=== PATIENT | male | born 1955 | race Caucasian/White ===

== ENCOUNTER 2018-11-23 08:09 | Outpatient (CLI) | payer OTHER | END 2018-11-23 08:10 | disposition home or self-care (01) | LOC: DI 08:09 | PROVIDERS: ATTEND General Practice | DX: I48.91 Unspecified atrial fibrillation (principal) | CPT/HCPCS: 93306 ==

== ENCOUNTER 2021-10-30 10:08 | Emergency (ER) | payer OTHER, MEDICARE ==
[2021-10-30] MEDS ORDERED: KETOROLAC 15 MG/ML VIAL IVP STA (10:37)
[2021-10-30] MEDS ORDERED: HYDROmorphone 0.5 MG/0.5 ML SYRINGE IVP STA (10:38)
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
--- NOTE | 2021-10-30 11:17 | CT Report ---
PROCEDURE: HEAD WO INDICATIONS: MCA, on Eliquis TECHNIQUE: Noncontrast 4.5 mm thick angled axial sections acquired from the foramen magnum to the vertex. For r adiation dose reduction, the following was used: automated exposure control, adjustment of mA and/or kV according to patient size. COMPARISON: 06/07/2014 FINDINGS: Image quality: Excellent. CSF spaces: Basal cisterns are patent. No extra-axial fluid collections. Ventricles are normal in size and shape. Brain: No midline shift. No intracranial masses or hemorrhage. No mass effect. Cade-white matter i nterface is normal. There cerebral volume loss for age with resultant ventricular and sulcal prominen ce. There are periventricular and deep white matter chronic small vessel ischemic changes. Atheroscle rotic calcifications are noted in the intracranial segments of the bilateral internal carotid arterie s. Skull and face: Calvarium and visualized facial bones are intact, without suspicious lesions. Sinuses: Visualized sinuses and mastoids are clear. IMPRESSION: CT head without acute intracranial abnormalities or acute calvarial fractures. Age-related senescent changes and sequela chronic small vessel ischemic disease. Reviewed by: Reg Gutiérrez MD on 10/30/2021 11:15 AM PDT Approved by: Reg Gutiérrez MD on 10/30/2021 11:15 AM PDT Station ID: [id number]
[2021-10-30 13:25] VITALS: BP 116/60
== END 2021-10-30 13:25 | disposition home or self-care (01) ==
LOC: ED 10:08
DX: S92.415A Nondisplaced fracture of proximal phalanx of left great toe, initial encounter for closed fracture (principal); S80.812A Abrasion, left lower leg, initial encounter; V86.56XA Driver of dirt bike or motor/cross bike injured in nontraffic accident, initial encounter; Y93.55 Activity, bike riding; Y99.0 Civilian activity done for income or pay; I10 Essential (primary) hypertension
CPT/HCPCS: 1040M; 36415; 70450; 73590; 73630; 96374; 96375; 99284; J1170